=== PATIENT | female | born 1980 | race Caucasian/White ===

== ENCOUNTER 2017-04-06 18:52 | Emergency (ER) | payer SELFPAY ==
[2017-04-06 20:12] VITALS: BP 112/75; PULSE 60; RESP 18; TEMP 98.2; O2SAT 100
--- NOTE | 2017-04-06 21:27 | C.PDOC ---
History Of Present Illness Patient is a 36 year old female who presents to the ER with a complaint of pain and swelling to her right lower eyelid for the past 8 months that has worsened over the last month. Patient states she went to see control systems technician who told her that her eye exam was clear and that the swelling was due to some other source. Patient denies fever, trauma, vision changes, or eye drainage. Time Seen by Provider: 04/06/17 19:39 Chief Complaint (Nursing): Eye Problem History Per: Patient History/Exam Limitations: no limitations Onset/Duration Of Symptoms: Days (8 months) Current Symptoms Are (Timing): Gone Injury To Eye?: No Quality: Other (Swelling) Associated Symptoms: Pain, Swelling. denies: Decreased Vision, Discharge From Eye Recent travel outside of the [place]: No Past Medical History Reviewed: Historical Data, Nursing Documentation, Vital Signs Vital Signs: Last Vital Signs Temp 98.2 F 04/06/17 20:10 Pulse 60 04/06/17 20:10 Resp 18 04/06/17 20:10 BP 112/75 04/06/17 20:10 Pulse Ox 100 04/06/17 21:52 - Medical History PMH: No Chronic Diseases Surgical History: No Surg Hx Family History: States: Unknown Family Hx - Social History Hx Alcohol Use: No Hx Substance Use: No - Immunization History Hx Tetanus Toxoid Vaccination: No Hx Influenza Vaccination: No Hx Pneumococcal Vaccination: No Review Of Systems Constitutional: Negative for: Fever Eyes: Positive for: Pain, Other (Right eyelid swelling. No drainage.). Negative for: Vision Change Physical Exam - Physical Exam Appears: Well, Non-toxic Skin: Normal Color, Warm, Dry Head: Atraumatic, Normacephalic Eye(s): bilateral: Normal Inspection (No conjunctival erythema, no foreign body on lid eversion), PERRL, EOMI, Other (Soft, round cyst like mass underneath the right eyelid. ) Oral Mucosa: Moist Throat: No Erythema, No Exudate Neck: Normal, Supple Extremity: Normal ROM Neurological/Psych: Oriented x3, Normal Speech, Normal Cognition, Normal Cranial Nerves, Normal Motor, Normal Sensation Gait: Steady ED Course And Treatment O2 Sat by Pulse Oximetry: 100 (Room air) Pulse Ox Interpretation: Normal Progress Note: CT of orbits and facial w/o contrast. Disposition - Disposition Referrals: Juanjose Al MD [Staff Provider] - Thalia Randhawa DMD [Staff Provider] - Disposition: HOME/ ROUTINE Disposition Time: 21:49 Condition: GOOD Additional Instructions: Follow up with the medical doctor within 1-2 days, Return if worsened. Instructions: Cyst (ED) Print Language: MONEGASQUE - Clinical Impression Clinical Impression: Mucous retention cyst of maxillary sinus - Scribe Statement The provider has reviewed the documentation as recorded by the Scribana John All medical record entries made by the Toyaibana were at my direction and personally dictated by me. I have reviewed the chart and agree that the record accurately reflects my personal performance of the history, physical exam, medical decision making, and the department course for this patient. I have also personally directed, reviewed, and agree with the discharge instructions and disposition.
--- NOTE | 2017-04-07 11:45 | CT ---
PROCEDURE: CT ORBITS WITHOUT CONTRAST. HISTORY: ?cyst to the lower Right eyelid/upper cheek COMPARISON: None available. TECHNIQUE: Axial CT images of the orbits were obtained. Coronal and sagittal reformats were generated. Radiation dose: Total exam DLP = 4565.9 mGy-cm. This CT exam was performed using one or more of the following dose reduction techniques: Automated exposure control, adjustment of the mA and/or kV according to patient size, and/or use of iterative reconstruction technique. FINDINGS: RIGHT ORBIT: RIGHT BONY ORBIT: Normal. RIGHT INTRAORBITAL STRUCTURES: Globe: Normal. Extraocular muscles: Normal. Post septal space: Questionable 8 millimeter cyst at the inferior aspect of the right orbit. Optic Nerve: Normal. Lacrimal Apparatus: Normal. RIGHT PRESEPTAL SOFT TISSUES: Normal. LEFT ORBIT: LEFT BONY ORBIT: Normal. LEFT INTRAORBITAL STRUCTURES: Globe: Normal. Extraocular muscles: Normal. Post septal space: Normal Optic Nerve: Normal. . Lacrimal Apparatus: Normal. LEFT PRESEPTAL SOFT TISSUES: Unremarkable. OTHER: 1.7 centimeter mucosal retention cyst at the inferior aspect of the left maxillary sinus. IMPRESSION: Questionable small cyst at the inferior aspect of the right orbit. Otherwise unremarkable study. The assessment is suboptimal without IV contrast administration. Preliminary report was submitted by [facility].
== END 2017-04-06 22:09 | disposition home or self-care (01) ==
LOC: C.ER 18:52
DX: J34.1 Cyst and mucocele of nose and nasal sinus (principal)